=== PATIENT | female | born 1995 | race Caucasian/White ===

== ENCOUNTER 2017-10-28 14:56 | Outpatient (CLI) | payer MEDICAID ==
[~2017-10-28] VITALS: Ht 167.6 cm; Wt 57.6 kg
[2017-10-28] MEDS ORDERED: ONDA4TAB8 SL (15:09)
[2017-10-28] MEDS ORDERED: PREN-8 PO (15:09)
[2017-11-02] MEDS ORDERED: DOXY1TAB3 PO (11:07)
[2017-11-02] MEDS ORDERED: ACET-2267 PO (11:07)
== END 2017-10-28 15:15 ==
LOC: PREOP 14:56
PROVIDERS: ATTEND Obstetrics & Gynecology
DX: Z01.818 Encounter for other preprocedural examination (principal); N88.3 Incompetence of cervix uteri

== ENCOUNTER 2017-11-02 08:27 | Day surgery (SDC) | payer MEDICAID ==
[~2017-11-02] VITALS: Ht 167.6 cm; Wt 57.6 kg
[~2017-11-02 08:27] MED LIST: ONDA4TAB8 SL; PREN-8 PO
[2017-11-02 08:33] VITALS: BP 113/72
[2017-11-02] MEDS ORDERED: metroNIDAZOLE 500MG/100ML IVPB 100 ML IV ONE (08:45)
[2017-11-02] MEDS ORDERED: ceFAZolin INJECTION 1,000 MG in NS (IVPB) 50 ML IV ONE (08:45)
[2017-11-02] MEDS: LACTATED RINGERS 1,000 ML IV PRN ×2 (09:20→10:16)
[2017-11-02 09:38] LABS: HEMOGLOBIN 12.3 G/DL (11.5-16.0); MEAN PLATELET VOLUME 9.8 FL (7.4-10.4); RED BLOOD COUNT 3.61 10^6/uL (4.35-5.85); RED CELL DISTRIBUTION WIDTH 12.1 % (10.0-14.5); WHITE BLOOD COUNT 6.8 10^3/uL (4.3-11.0)
[2017-11-02] MEDS ORDERED: BUPIVACAINE SPINAL 0.75% (SENSORCAINE) 2 ML AMP ONE (10:06)
[2017-11-02] MEDS ORDERED: fentaNYL INJECTION 100 MCG/2 ML AMP ONE (10:09)
[2017-11-02] MEDS ORDERED: PROG200C6 PO (10:19)
--- NOTE | 2017-11-02 10:21 | Progress Note-Pre Operative ---
Pre-Operative Progress Note H&P Reviewed The H&P was reviewed, patient examined and no changes noted. Date Seen by Provider: Nov 02, 2017 Time Seen by Provider: 10:00 Date H&P Reviewed: Nov 02, 2017 Time H&P Reviewed: 10:15 Pre-Operative Diagnosis: incompetent cervix CHRIS VILLEGAS DO Nov 02, 2017 10:21
[2017-11-02] MEDS: BUPIVACAINE 0.25% 30 ML (SENSORCAINE) VIAL ONE ×2 (10:54→11:04)
--- NOTE | 2017-11-02 10:59 | Operative Report ---
Operative Report Date of Procedure/Surgery Nov 02, 2017 Surgeon (s) CHRIS VILLEGAS DO [place] Knitter (s): NA Post-Operative Diagnosis incompetent cervix Procedure Performed Oneal Cerclage Description of Procedure Anesthesia Type: Spinal Estimated blood loss (mL): none Specimen(s) collected/removed none Findings of the Procedure ethibond x 2 sutures 3 o;'clock Allergies and Home Medications Allergies Coded Allergies: No Known Drug Allergies (Unverified , 10/28/17) Home Medications Ondansetron 4 Mg Tab.rapdis, 4 MG SL Q8H PRN for NAUSEA/VOMITING-1ST LINE, ( Reported) Vit W-Ca,Fe,FA(<1 mg) 1 Each Tablet, 1 EACH PO DAILY, (Reported) Progesterone,Micronized 200 Mg Capsule, 200 MG PO DAILY, (Reported) CHRIS VILLEGAS DO Nov 02, 2017 10:59
[2017-11-02] MEDS ORDERED: ACETAMINOPHEN 500 MG TAB (TYLENOL) PO PRN (11:00)
[2017-11-02] MEDS ORDERED: ONDANSETRON 4 MG/2 ML (SDV) Z0FRAN IVP PRN ×2 (11:00→11:15)
[2017-11-02] MEDS ORDERED: ACET-2267 PO (11:07)
[2017-11-02] MEDS ORDERED: DOXY1TAB3 PO (11:07)
--- NOTE | 2017-11-02 11:09 | Discharge Inst-Women's Service ---
Discharge Inst-Women's Serv Depart Medication/Instructions New, Converted or Re-Newed RX: Other (has at home) Instructions Call for bleeding greater than spotting (expect spotting/light bleeding for 7= 10 days); cramping, contractions, increased watery discharge Final Diagnosis Incompetent cervix Oneal's cerclage Consults/Follow Up Additional Follow Up: Yes (1 week) Activity Activity: Bedrest (for 24-48 horus) Driving Instructions: No Driving for 24 Hours NO SMOKING: NO SMOKING Nothing Inside Vagina: No Douching, No [place], No Tampons Diet Discharge Diet: No Restrictions Symptoms to Report to : Bleeding Excessive, Pain Increased, Fever Over 101 Degrees F, Vaginal Bleeding Increase, Vaginal Discharge Foul For Any Problems or Questions: Contact Your Physician CHRIS VILLEGAS DO Nov 02, 2017 11:09
[2017-11-02 11:40] VITALS: BP 107/69
[2017-11-02 12:10] VITALS: BP 102/62
[2017-11-02] MEDS ORDERED: LIDOCAINE PF 2% 5 ML (XYLOCAINE) VIAL ONE (12:14)
[2017-11-02] MEDS ORDERED: ONDANSETRON 4 MG/2 ML (SDV) Z0FRAN ONE (12:15)
[2017-11-02 13:00] VITALS: BP 105/62
--- NOTE | 2017-11-02 15:56 | Anesthesia-Regional Post-Op ---
Regional Patient Condition Mental Status: Alert, Oriented x3 Circulation: Same as Pre-Op Headache: Absent Sensation: Full Recovery Motor Block: Absent Post Op Complications Complications None Follow Up Care/Instructions Patient Instructions None needed. Anesthesia/Patient Condition Patient is doing well, no complaints, stable vital signs, no apparent adverse anesthesia problems. JUAN FIELDS DO Nov 02, 2017 15:56
[2017-11-02 16:07] VITALS: BP 105/62
== END 2017-11-02 16:07 | disposition home or self-care (01) ==
LOC: SDC 08:27
PROVIDERS: ATTEND Obstetrics & Gynecology
DX: O34.32 Maternal care for cervical incompetence, second trimester (principal)
CPT/HCPCS: 36415; 85027; 87081; 94664

== ENCOUNTER → 2017-11-30 | Outpatient (CLI) | payer MEDICAID ==
[~2017-11-30] MED LIST changes: +ACET-2267 PO; +DOXY1TAB3 PO; +PROG200C6 PO
--- NOTE | 2017-11-30 16:10 | Diagnostic Imaging Report ---
INDICATION: survey. TECHNIQUE: Multiple real-time grayscale images were obtained over the gravid uterus. COMPARISON: None. FINDINGS: There is a single live fetus in a cephalic presentation. heart rate was recorded at 139 beats per minute. The placenta is posterior. The amniotic fluid volume is normal. Cervical length is 7.9 cm. survey demonstrates kidneys, bladder, and stomach to be unremarkable. brain is unremarkable. There is a four-chamber heart. There is a three-vessel cord with normal insertion. The spine is unremarkable. Biometrical measurements are as follows: Biparietal 3.7 cm, age 17 weeks 2 days. Head circumference 14.1 cm, age 17 weeks 4 days. Abdominal circumference 11.6 cm, age 17 weeks 3 days. Femur length 2.5 cm, age 17 weeks 4 days. Sonographic estimate age: 17 weeks 4 days. Sonographic estimated date of delivery: 05/06/18. Estimated Weight: 195 gm (+/- 29 gm). LMP percentile: 4%. heart rate: 139 beats per minute. number: 1 of 1. IMPRESSION: Single live IUP at 17 weeks 4 days gestational age. The estimated date of confinement sonographically is 05/06/2018. Dictated by: Dictated on workstation # [id number]
== END ==
LOC: RAD 14:22
PROVIDERS: ATTEND Obstetrics & Gynecology
DX: Z36.89 Encounter for other specified antenatal screening (principal); Z3A.17 17 weeks gestation of pregnancy
CPT/HCPCS: 76805

== ENCOUNTER → 2018-02-22 | Outpatient (CLI) | payer MEDICAID ==
--- NOTE | 2018-02-22 17:17 | Diagnostic Imaging Report ---
INDICATION: Followup anatomy survey not seen on prior exam. TECHNIQUE: Multiple real-time grayscale images were obtained over the gravid uterus. COMPARISON: anatomy survey of 11/30/2017. FINDINGS: The cervix remains closed measuring 4.2 cm in length. heart rate is 144 beats per minute. The fetus is in cephalic presentation. Placenta is posteriorly located and there is no evidence of previa. The YELENA is normal at 11.5 cm. Due to advanced gestational age, the maternal adnexa are not well seen. The following anatomy structures are visualized and normal: The lips, nose, and profile. Estimated gestational age by biparietal diameter, head circumference, abdominal circumference, and femoral length results in an estimated gestational age of 30 weeks and 0 days. This is concordant with patient's gestational age by LMP of 30 weeks and 4 days. Estimated weight is 3 lbs. 3 oz. (+/-7 ounces). Estimated weight is in the 15th-29th percentile. IMPRESSION: 1. Cervix is closed and measures 4.2 cm in length. 2. Limited anatomy survey of the face is normal. Dictated by: Dictated on workstation # [id number]
== END ==
LOC: RAD 09:44
PROVIDERS: ATTEND Obstetrics & Gynecology
DX: O34.33 Maternal care for cervical incompetence, third trimester (principal); O09.213 Supervision of pregnancy with history of pre-term labor, third trimester; O09.293 Supervision of pregnancy with other poor reproductive or obstetric history, third trimester; Z3A.30 30 weeks gestation of pregnancy
CPT/HCPCS: 76816

== ENCOUNTER 2018-04-21 16:00 | Outpatient (CLI) | payer MEDICAID ==
[2018-04-21 16:10] VITALS: BP 111/68
[2018-04-21] MEDS ORDERED: ONDANSETRON 4 MG/2 ML (SDV) Z0FRAN ONE (16:37)
[2018-04-21] MEDS ORDERED: NS IV 1000 ML 1,000 ML ONE (16:37)
[2018-04-21] MEDS ORDERED: NS IV 1000 ML 1,000 ML IV ONE (16:45)
[2018-04-21] MEDS: ONDANSETRON 4 MG/2 ML (SDV) Z0FRAN IVP PRN (16:51)
[2018-04-21 17:15] LABS: BASOPHILS % (AUTO) 0 % (0-10); EOSINOPHILS % (AUTO) 0 % (0-10); HEMATOCRIT 38 % (35-52); LYMPHOCYTES # (AUTO) 1.1 X 10^3 (1.0-4.0); LYMPHOCYTES % (AUTO) 7 % (12-44); MEAN CORPUSCULAR HEMOGLOBIN 34 PG (25-34); MEAN CORPUSCULAR HGB CONC 35 G/DL (32-36); MEAN CORPUSCULAR VOLUME 99 FL (80-99); MEAN PLATELET VOLUME 9.5 FL (7.4-10.4); MONOCYTES # (AUTO) 0.8 X 10^3 (0.0-1.0); MONOCYTES % (AUTO) 5 % (0-12); NEUTROPHILS # (AUTO) 14.5 X 10^3 (1.8-7.8); NEUTROPHILS % (AUTO) 88 % (42-75); PLATELET COUNT 299 10^3/uL (130-400); RED CELL DISTRIBUTION WIDTH 13.3 % (10.0-14.5); WHITE BLOOD COUNT 16.4 10^3/uL (4.3-11.0)
[2018-04-21 17:29] LABS: BAND NEUTROPHILS 2 %; BASOPHILS % (MANUAL) 0 %; EOSINOPHILS % (MANUAL) 0 %; LYMPHOCYTES % (MANUAL) 7 %; MONOCYTES % (MANUAL) 3 %; NEUTROPHILS % (MANUAL) 88 %
[2018-04-21 17:30] LABS: RBC MORPH NORMAL
[2018-04-21 17:31] LABS: ALANINE AMINOTRANSFERASE 13 U/L (0-55); ALBUMIN 3.6 GM/DL (3.2-4.5); ALKALINE PHOSPHATASE 129 U/L (40-136); BILIRUBIN,TOTAL 0.6 MG/DL (0.1-1.0); BUN/CREATININE RATIO 18; CALCIUM 8.7 MG/DL (8.5-10.1); CARBON DIOXIDE 21 MMOL/L (21-32); CHLORIDE 107 MMOL/L (98-107); CREATININE SERUM 0.67 MG/DL (0.60-1.30); GFR ESTIMATED > 60; GLUCOSE 89 MG/DL (70-105); POTASSIUM 3.7 MMOL/L (3.6-5.0); SODIUM 138 MMOL/L (135-145); TOTAL PROTEIN 6.6 GM/DL (6.4-8.2)
[2018-04-21] MEDS: PROMETHAZINE INJ 25 MG/ML (PHENERGAN) AMP IVP PRN (17:34)
[2018-04-21 18:21] LABS: BILIRUBIN,URINE NEGATIVE (NEGATIVE); CLARITY,URINE CLEAR; COLOR,URINE YELLOW; GLUCOSE, URINE (UA) NEGATIVE (NEGATIVE); KETONES,URINE 3+ (NEGATIVE); LEUKOCYTE ESTERASE ,URINE 1+ (NEGATIVE); NITRITE,URINE NEGATIVE (NEGATIVE); PH,URINE 6 (5-9); PROTEIN,URINE 2+ (NEGATIVE); UROBILINOGEN,URINE NORMAL (NORMAL)
[2018-04-21 18:31] LABS: BACTERIA,URINE FEW /HPF
[2018-04-21] MEDS: NS IV 1000 ML 1,000 ML IV SCH (19:07)
[2018-04-22] MEDS: NS IV 1000 ML 1,000 ML IV SCH ×3 (00:07→10:45)
[2018-04-22 00:10] VITALS: BP 105/57
[2018-04-22] MEDS: ONDANSETRON 4 MG/2 ML (SDV) Z0FRAN IVP PRN (00:10)
[2018-04-22 04:46] VITALS: BP 111/56
[2018-04-22] MEDS: CATHETER FLUSH 10 ML SYR IV PRN (08:14)
[2018-04-22] MEDS: PROMETHAZINE INJ 25 MG/ML (PHENERGAN) AMP IVP PRN (08:14)
--- NOTE | 2018-04-22 13:11 | Physician Progress Note ---
Progress Note Assessment/Plan Date Seen by Provider: Apr 22, 2018 Time Seen by Provider: 08:15 Events since last exam Has not had emesis since admission. Has received several doses of antiemetics. Has not yet eaten. Just received promethazine. Vitals Last set of Vitals Signs Vital Signs Date Time Temp Pulse Resp B/P (MAP) Pulse Ox O2 Delivery O2 Flow Rate FiO2 04/22/18 04:46 99.2 94 20 111/56 (74) 97 Room Air I&O I&O Intake and Output 04/22/18 00:00 Intake Total 1000 ml Balance 1000 ml Intake IV Total 1000 ml Labs Laboratory Tests 04/21/18 17:00: White Blood Count 16.4H, Red Blood Count 3.80L, Hemoglobin 13.0, Hematocrit 38, Mean Corpuscular Volume 99, Mean Corpuscular Hemoglobin 34, Mean Corpuscular Hemoglobin Concent 35, Red Cell Distribution Width 13.3, Platelet Count 299, Mean Platelet Volume 9.5, Neutrophils (%) (Auto) 88H, Lymphocytes (%) (Auto) 7L , Monocytes (%) (Auto) 5, Eosinophils (%) (Auto) 0, Basophils (%) (Auto) 0, Neutrophils # (Auto) 14.5H, Lymphocytes # (Auto) 1.1, Monocytes # (Auto) 0.8, Eosinophils # (Auto) 0.0, Basophils # (Auto) 0.0, Neutrophils % (Manual) 88, Lymphocytes % (Manual) 7, Monocytes % (Manual) 3, Eosinophils % (Manual) 0, Basophils % (Manual) 0, Band Neutrophils 2, Blood Morphology Comment NORMAL, Sodium Level 138, Potassium Level 3.7, Chloride Level 107, Carbon Dioxide Level 21, Anion Gap 10, Blood Urea Nitrogen 12, Creatinine 0.67, Estimat Glomerular Filtration Rate > 60, BUN/Creatinine Ratio 18, Glucose Level 89, Calcium Level 8.7, Corrected Calcium 9.0, Total Bilirubin 0.6, Aspartate Amino Transf (AST/ SGOT) 21, Alanine Aminotransferase (ALT/SGPT) 13, Alkaline Phosphatase 129, Total Protein 6.6, Albumin 3.6 04/21/18 18:00: Urine Color YELLOW, Urine Clarity CLEAR, Urine pH 6, Urine Specific [place] 1.025H, Urine Protein 2+H, Urine Glucose (UA) NEGATIVE, Urine Ketones 3+H, Urine Nitrite NEGATIVE, Urine Bilirubin NEGATIVE, Urine Urobilinogen NORMAL, Urine Leukocyte Esterase 1+H, Urine RBC (Auto) 2+H, Urine RBC 5-10H, Urine WBC 2 -5, Urine Squamous Epithelial Cells 2-5, Urine Crystals NONE, Urine Bacteria FEWH, Urine Casts NONE, Urine Mucus NEGATIVE, Urine Culture Indicated NO CHRIS VILLEGAS DO Apr 22, 2018 13:11
[2018-04-22] MEDS ORDERED: PROM25TA14 PO (13:12)
--- NOTE | 2018-04-22 13:16 | Discharge Inst-Women's Service ---
Discharge Inst-Women's Serv Depart Medication/Instructions New, Converted or Re-Newed RX: Transmitted to Pharmacy Instructions sips of water or gatorade bland diet Final Diagnosis acute gastritis and dehydration 38 week Consults/Follow Up Additional Follow Up: Yes (as scheduled (1 week)) Activity Activity: Activity as Tolerated Driving Instructions: You May Drive NO SMOKING: NO SMOKING Nothing Inside Vagina: No Douching, No [place], No Tampons Diet Discharge Diet: Other Diet (as above) Return to The Hospital For: labor, rupture of membranes, vaginal bleeding For Any Problems or Questions: Contact Your Physician CHRIS VILLEGAS DO Apr 22, 2018 13:16
[2018-04-22 14:30] VITALS: BP 102/59
--- NOTE | 2018-04-26 21:16 | Physician Query-Final Dx ---
KALYAN CALVILLO 04/26/18 2116: Clinic Account Progress/Dx Physician Query: Please give diagnosis Date of Service Apr 21, 2018 at 16:00 CHRIS VILLEGAS DO 04/28/18 0647: Clinic Account Progress/Dx DIAGNOSIS: Diagnosis Gastritis, acute dehydration 38 week history of delivery Cerclage, history of incompetent cervix KALYAN CALVILLO Apr 26, 2018 21:16 CHRIS VILLEGAS DO Apr 28, 2018 06:47
== END 2018-04-22 15:20 | disposition home or self-care (01) ==
LOC: WSo 16:00 → LDRP 16:00 → WSo 04-22 15:20
PROVIDERS: ATTEND Obstetrics & Gynecology
DX: O99.89 Other specified diseases and conditions complicating pregnancy, childbirth and the puerperium (principal); K29.70 Gastritis, unspecified, without bleeding; E86.0 Dehydration; Z3A.38 38 weeks gestation of pregnancy; Z87.51 Personal history of pre-term labor
CPT/HCPCS: 36415; 80053; 81000; 85007; 85027; 96361; 96374; 96375; 96376

== ENCOUNTER 2018-04-29 08:25 | Inpatient (IN) | payer MEDICAID ==
[2018-04-29] VITALS (44 sets, daily range): BP systolic 93–129; BP diastolic 53–80
[~2018-04-29] VITALS: Ht 167.6 cm; Wt 74.4 kg
[~2018-04-29 08:25] MED LIST changes: +PROM25TA14 PO
[2018-04-29] MEDS ORDERED: D5 LR IV SOLUTION 1,000 ML IV SCH (09:01)
[2018-04-29] MEDS ORDERED: D5 LR IV SOLUTION 1,000 ML IV ONE (09:06)
[2018-04-29 09:09] LABS: BASOPHILS % (AUTO) 0 % (0-10); EOSINOPHILS # (AUTO) 0.1 10^3/uL (0.0-0.3); EOSINOPHILS % (AUTO) 1 % (0-10); HEMATOCRIT 35 % (35-52); LYMPHOCYTES # (AUTO) 2.7 X 10^3 (1.0-4.0); LYMPHOCYTES % (AUTO) 25 % (12-44); MEAN CORPUSCULAR HEMOGLOBIN 34 PG (25-34); MEAN CORPUSCULAR HGB CONC 35 G/DL (32-36); MEAN CORPUSCULAR VOLUME 99 FL (80-99); MEAN PLATELET VOLUME 9.4 FL (7.4-10.4); MONOCYTES # (AUTO) 0.9 X 10^3 (0.0-1.0); MONOCYTES % (AUTO) 8 % (0-12); NEUTROPHILS # (AUTO) 7.2 X 10^3 (1.8-7.8); NEUTROPHILS % (AUTO) 67 % (42-75); PLATELET COUNT 294 10^3/uL (130-400); RED BLOOD COUNT 3.51 10^6/uL (4.35-5.85); RED CELL DISTRIBUTION WIDTH 13.4 % (10.0-14.5); WHITE BLOOD COUNT 10.9 10^3/uL (4.3-11.0)
[2018-04-29] MEDS ORDERED: MINERAL OIL CONCENTRATE 99.9% 15 ML UDC TOP PRN (09:15)
[2018-04-29] MEDS ORDERED: SUFENTA 0.6MCG/ML BUPIVA 0.125 100 ML ONE (09:50)
[2018-04-29] MEDS ORDERED: BUPIVACAINE 0.25% 30 ML (SENSORCAINE) VIAL ONE (10:10)
[2018-04-29] MEDS ORDERED: fentaNYL INJECTION 100 MCG/2 ML AMP ONE (10:10)
[2018-04-29] MEDS ORDERED: LACTATED RINGERS 1,000 ML IV SCH (12:19)
[2018-04-29] MEDS ORDERED: EPIDURAL (SUFENTA 0.6MCG/ML BUPIVA 0.125%) 100 ML BAG EPI PRN (12:30)
[2018-04-29] MEDS ORDERED: METOCLOPRAMIDE INJ 10 MG/2 ML (REGLAN) IV PRN (12:30)
[2018-04-29] MEDS ORDERED: NALOXONE 0.4 MG/ML 1 ML (NARCAN) VIAL IV PRN ×2 (12:30)
[2018-04-29] MEDS ORDERED: ONDANSETRON 4 MG/2 ML (SDV) Z0FRAN IV PRN (12:30)
[2018-04-29] MEDS ORDERED: diphenhydrAMINE 50 MG/ML INJ (BENADRYL) IV PRN (12:30)
[2018-04-29] MEDS ORDERED: CALCIUM CARBONATE 500 MG (TUMS) TAB.CHEW PO NR (13:00)
[2018-04-29] MEDS ORDERED: LIDOCAINE/EPI 2% 1:200,00 (XYLOCAINE) 10 ML VIAL ONE (13:05)
[2018-04-29] MEDS ORDERED: OXYTOCIN/NORMAL SALINE 500 ML IV ONE (13:09)
[2018-04-29] MEDS ORDERED: OXYTOCIN/NORMAL SALINE 500 ML IV SCH (13:37)
--- NOTE | 2018-04-29 13:41 | OB Labor & Delivery Record ---
Vag Delivery Note Vag Delivery Note Date of Delivery: 04/29/18 Preoperative Diagnosis: Ramila Nolasco is a 24 /Para 3/1 weeks , Gestational Age 40 weeks, history of cdelivery and incompetent cervix s/ p cerclage removal at 36 weeks Postoperative Diagnosis: Same Surgeon: CHRIS VILLEGAS Anesthesia: epidural Delivery Type: spontaneous vaginal Findings: Viable female , apgars 9/9, weight pending Lacerations: none Intact placenta with 3 vessel cord. No nuchal cord, body cord or shoulder dystocia Estimated Blood Loss: 150 ml Complications: None Condition: Stable Description of Procedure: The patient is a 24 /Para 3/1 weeks ,Gestational Age 40 weeks, history of delivery and incompetent cervix s/p cerclage removal at 36 weeks who presented for induction of labor. She was admitted and informed consent was obtained. Her labor course was remarkable for epidural placement and AROM. She progressed to complete dilatation and began to push. She was then set up for delivery. The infant's head was delivered atraumatically in the JERRELL position. The shoulders and remainder of the 's body were then delivered without difficulty. Upon delivery, the head was held below the level of the perineum and the mouth and nares were bulb suctioned. The cord was doubly clamped and cut and the infant was handed off to the pediatric staff. An intact placenta with 3-vessel cord delivered via Monie and there was found to be minimal bleeding.~ Vigorous fundal massage was performed and the fundus was found to be firm. IV oxytocin was given. Examination of the vagina and perineum revealed no laceration repaired in the usual fashion with 3-0 vicryl suture. Following the delivery sponge, instrument and needle counts were correct. Mom and baby were both in stable condition in the labor suite. Vitals - Labs Vital Signs - I&O Vital Signs Date Time Temp Pulse Resp B/P (MAP) Pulse Ox O2 Delivery O2 Flow Rate FiO2 04/29/18 11:13 75 18 112/71 (85) 100 04/29/18 11:10 84 18 119/75 (90) 100 04/29/18 11:08 81 18 118/73 (88) 98 04/29/18 11:05 82 18 117/74 (88) 98 04/29/18 10:55 82 18 119/74 (89) 99 04/29/18 10:52 90 18 129/77 (94) 99 04/29/18 10:49 79 18 119/70 (86) 99 04/29/18 10:46 94 18 127/79 (95) 98 04/29/18 10:43 88 18 113/72 (86) 98 04/29/18 10:40 82 18 113/69 (84) 98 04/29/18 10:35 94 18 116/76 (89) 98 04/29/18 10:15 85 18 114/72 (86) 04/29/18 10:05 71 18 109/63 (78) 04/29/18 09:50 77 18 108/63 (78) 04/29/18 09:35 78 18 111/62 (78) 04/29/18 08:35 97.6 79 18 111/66 (81) Labs Laboratory Tests 04/29/18 08:50: White Blood Count 10.9, Red Blood Count 3.51L, Hemoglobin 12.0, Hematocrit 35, Mean Corpuscular Volume 99, Mean Corpuscular Hemoglobin 34, Mean Corpuscular Hemoglobin Concent 35, Red Cell Distribution Width 13.4, Platelet Count 294, Mean Platelet Volume 9.4, Neutrophils (%) (Auto) 67, Lymphocytes (%) (Auto) 25, Monocytes (%) (Auto) 8, Eosinophils (%) (Auto) 1, Basophils (%) (Auto) 0, Neutrophils # (Auto) 7.2, Lymphocytes # (Auto) 2.7, Monocytes # (Auto) 0.9, Eosinophils # (Auto) 0.1, Basophils # (Auto) 0.0 CHRIS VILLEGAS DO Apr 29, 2018 13:41
[2018-04-29] MEDS ORDERED: MEASLES,MUMPS,RUBELLA 1 EA INJ SQ ONE (13:45)
[2018-04-29] MEDS ORDERED: DIBUCAINE (NUPERCAINAL) 1% OINT 30 GM TOP PRN (13:45)
[2018-04-29] MEDS ORDERED: WITCH HAZEL(TUCKS) 40 EA JAR TOP PRN (13:45)
[2018-04-29] MEDS ORDERED: BENZOCAINE/MENTHOL (DERMOPLAST) 56 ML CAN TP PRN (13:45)
[2018-04-29] MEDS ORDERED: TETANUS,DIPTH,PERTUSS P/F (BOOSTRIX) 0.5 ML VIAL IM ONE (13:45)
[2018-04-29] MEDS ORDERED: ACETAMINOPHEN 500 MG TAB (TYLENOL) PO PRN (13:45)
[2018-04-29] MEDS ORDERED: CATHETER FLUSH 10 ML SYR IV SCH ×2 (14:00)
[2018-04-29] MEDS: IBUPROFEN 600 MG (MOTRIN) TAB PO SCH ×2 (14:53→20:31)
[2018-04-29] MEDS: DOCUSATE SODIUM 100 MG (COLACE) CAP PO SCH (20:31)
[2018-04-30] VITALS: BP 126/86
[2018-04-30] MEDS: IBUPROFEN 600 MG (MOTRIN) TAB PO SCH ×3 (02:34→15:40)
[2018-04-30 04:00] VITALS: BP 108/74
[2018-04-30 06:07] LABS: BASOPHILS % (AUTO) 0 % (0-10); EOSINOPHILS # (AUTO) 0.1 10^3/uL (0.0-0.3); EOSINOPHILS % (AUTO) 1 % (0-10); HEMATOCRIT 33 % (35-52); HEMOGLOBIN 11.3 G/DL (11.5-16.0); LYMPHOCYTES # (AUTO) 2.5 X 10^3 (1.0-4.0); LYMPHOCYTES % (AUTO) 21 % (12-44); MEAN CORPUSCULAR HEMOGLOBIN 35 PG (25-34); MEAN CORPUSCULAR HGB CONC 35 G/DL (32-36); MEAN CORPUSCULAR VOLUME 100 FL (80-99); MEAN PLATELET VOLUME 9.3 FL (7.4-10.4); MONOCYTES # (AUTO) 1.1 X 10^3 (0.0-1.0); MONOCYTES % (AUTO) 10 % (0-12); NEUTROPHILS # (AUTO) 7.9 X 10^3 (1.8-7.8); NEUTROPHILS % (AUTO) 68 % (42-75); PLATELET COUNT 266 10^3/uL (130-400); RED BLOOD COUNT 3.25 10^6/uL (4.35-5.85); RED CELL DISTRIBUTION WIDTH 13.1 % (10.0-14.5); WHITE BLOOD COUNT 11.6 10^3/uL (4.3-11.0)
[2018-04-30] MEDS ORDERED: PRENATAL VITAMIN 1 EA TAB PO SCH (07:00)
[2018-04-30] MEDS ORDERED: FERROUS SULF 325 MG (IRON) TAB PO SCH (08:00)
[2018-04-30 08:34] VITALS: BP 123/82
[2018-04-30] MEDS: DOCUSATE SODIUM 100 MG (COLACE) CAP PO SCH (08:36)
[2018-04-30] MEDS ORDERED: IBUP-844 PO (10:31)
[2018-04-30] MEDS ORDERED: ACET-2267 PO (10:31)
--- NOTE | 2018-04-30 10:36 | Discharge Inst-Women's Service ---
Discharge Inst-Women's Serv Depart Medication/Instructions New, Converted or Re-Newed RX: Transmitted to Pharmacy Final Diagnosis 40 week history of delivery cerclage history of incompetent cervix. epidural vaginal delivery Consults/Follow Up Additional Follow Up: Yes (6week post exam) Activity Activity: Activity as Tolerated Driving Instructions: You May Drive NO SMOKING: NO SMOKING Nothing Inside Vagina: No Douching, No [place], No Tampons Diet Discharge Diet: No Restrictions Symptoms to Report to : Swelling Increased, Bleeding Excessive, Fever Over 101 Degrees F, Vaginal Bleeding Increase, Cramps in Feet or Legs, Vaginal Discharge Foul For Any Problems or Questions: Contact Your Physician CHRIS VILLEGAS DO Apr 30, 2018 10:36
[2018-04-30] MEDS ORDERED: ONDANSETRON 4 MG (ZOFRAN) ORAL DISSOLVE TAB PO PRN (10:45)
--- NOTE | 2018-04-30 10:53 | Postpartum Progress Note ---
Note Note Day # 1 s/p Subjective: Patient is without complaints. Ambulating, voiding. Tolerating a regular diet without nausea or vomiting. Normal lochia. Pain is well controlled with oral pain medications. breast feeding. [] Objective: Laboratory Tests Test 04/30/18 06:00 Range/Units White Blood Count 11.6 H 4.3-11.0 10^3/uL Red Blood Count 3.25 L 4.35-5.85 10^6/uL Hemoglobin 11.3 L 11.5-16.0 G/DL Hematocrit 33 L 35-52 % Mean Corpuscular Volume 100 H 80-99 FL Mean Corpuscular Hemoglobin 35 H 25-34 PG Mean Corpuscular Hemoglobin Concent 35 32-36 G/DL Red Cell Distribution Width 13.1 10.0-14.5 % Platelet Count 266 130-400 10^3/uL Mean Platelet Volume 9.3 7.4-10.4 FL Neutrophils (%) (Auto) 68 42-75 % Lymphocytes (%) (Auto) 21 12-44 % Monocytes (%) (Auto) 10 0-12 % Eosinophils (%) (Auto) 1 0-10 % Basophils (%) (Auto) 0 0-10 % Neutrophils # (Auto) 7.9 H 1.8-7.8 X 10^3 Lymphocytes # (Auto) 2.5 1.0-4.0 X 10^3 Monocytes # (Auto) 1.1 H 0.0-1.0 X 10^3 Eosinophils # (Auto) 0.1 0.0-0.3 10^3/uL Basophils # (Auto) 0.0 0.0-0.1 10^3/uL Vital Sign - Last 24 Hours 04/29/18 04/29/18 04/29/18 04/29/18 10:43 10:46 10:49 10:52 Pulse 88 94 79 90 Resp B/P (MAP) 113/72 (86) 127/79 (95) 119/70 (86) 129/77 (94) Pulse Ox 98 98 99 99 04/29/18 04/29/18 04/29/18 04/29/18 10:55 11:05 11:08 11:10 Pulse 82 82 81 84 Resp 18 B/P (MAP) 119/74 (89) 117/74 (88) 118/73 (88) 119/75 (90) Pulse Ox 99 98 98 100 04/29/18 04/29/18 04/29/18 04/29/18 11:13 11:16 11:20 11:25 Temp 97.6 Pulse 75 71 76 76 Resp 18 18 18 18 B/P (MAP) 112/71 (85) 108/72 (84) 117/73 (88) 117/73 (88) Pulse Ox 100 99 100 100 O2 Delivery Non Rebreather Non Rebreather Non Rebreather O2 Flow Rate 15.00 15.00 15.00 04/29/18 04/29/18 04/29/18 04/29/18 11:30 11:35 11:40 11:45 Pulse 62 59 74 76 Resp 18 18 18 18 B/P (MAP) 104/59 (74) 105/61 (76) 108/71 (83) 108/55 (72) Pulse Ox 100 100 100 100 O2 Delivery Non Rebreather Room Air Non Rebreather Non Rebreather O2 Flow Rate 15.00 15.00 15.00 04/29/18 04/29/18 04/29/18 04/29/18 11:50 11:55 12:00 12:05 Pulse 75 70 72 64 Resp 18 18 18 18 B/P (MAP) 100/62 (75) 97/53 (68) 111/75 (87) 115/78 (90) Pulse Ox 100 100 100 100 O2 Delivery Non Rebreather Non Rebreather Non Rebreather Non Rebreather O2 Flow Rate 15.00 15.00 15.00 15.00 04/29/18 04/29/18 04/29/18 04/29/18 12:10 12:20 12:30 12:45 Pulse 66 63 75 61 Resp 18 18 18 18 B/P (MAP) 120/71 (87) 106/58 (74) 101/62 (75) 93/54 (67) Pulse Ox 100 O2 Delivery Non Rebreather Non Rebreather Non Rebreather Non Rebreather O2 Flow Rate 15.00 15.00 15.00 15.00 04/29/18 04/29/18 04/29/18 04/29/18 13:00 13:15 13:30 13:45 Temp 97.4 Pulse 83 87 85 72 Resp 18 18 18 18 B/P (MAP) 111/62 (78) 119/79 (92) 113/68 (83) 110/65 (80) O2 Delivery Non Rebreather Room Air Room Air Room Air O2 Flow Rate 15.00 04/29/18 04/29/18 04/29/18 04/29/18 14:00 14:15 14:30 14:45 Pulse 71 74 77 69 Resp 18 18 B/P (MAP) 126/70 (88) 117/80 (92) 105/80 (88) 109/68 (82) O2 Delivery Room Air Room Air Room Air Room Air 04/29/18 04/29/18 04/29/18 04/29/18 15:00 15:15 15:30 15:45 Temp 97.8 Pulse 69 67 61 72 Resp 18 18 18 18 B/P (MAP) 110/68 (82) 110/68 (82) 98/71 (80) 102/64 (77) O2 Delivery Room Air Room Air Room Air Room Air 04/29/18 04/30/18 04/30/18 04/30/18 20:00 00:00 04:00 08:34 Temp 98.6 98.0 97.8 97.3 Pulse 77 79 84 82 Resp 18 18 18 16 B/P (MAP) 108/69 (82) 126/86 (99) 108/74 (85) 123/82 (96) Pulse Ox 99 99 97 97 O2 Delivery Room Air Room Air Room Air Room Air Intake and Output 04/29/18 04/29/18 04/30/18 15:00 23:00 07:00 Intake Total 2100 ml 844 ml Output Total 300 ml Balance 2100 ml 544 ml Physical Exam: General - Alert and oriented, no apparent distress Abdomen - Soft, appropriately tender to palpation, non-distended, fundus firm at umbilicus Extremities - no edema, negative Corby's bilaterally [] Assessment: [] post- day # [], status post [] vaginal delivery. Recovering well, hemodynamically stable [] Plan: Routine care. Encourage breast feeding. Encourage ambulation. Ferrous sulfate supplementation. Plan for discharge [] Vitals - Labs Vital Signs - I&O Vital Signs Date Time Temp Pulse Resp B/P (MAP) Pulse Ox O2 Delivery O2 Flow Rate FiO2 04/30/18 08:34 97.3 82 16 123/82 (96) 97 Room Air 04/30/18 04:00 97.8 84 18 108/74 (85) 97 Room Air 04/30/18 00:00 98.0 79 18 126/86 (99) 99 Room Air 04/29/18 20:00 98.6 77 18 108/69 (82) 99 Room Air 04/29/18 15:45 97.8 72 18 102/64 (77) Room Air 04/29/18 15:30 61 18 98/71 (80) Room Air 04/29/18 15:15 67 18 110/68 (82) Room Air 04/29/18 15:00 69 18 110/68 (82) Room Air 04/29/18 14:45 69 18 109/68 (82) Room Air 04/29/18 14:30 77 18 105/80 (88) Room Air 04/29/18 14:15 74 18 117/80 (92) Room Air 04/29/18 14:00 71 18 126/70 (88) Room Air 04/29/18 13:45 72 18 110/65 (80) Room Air 04/29/18 13:30 85 18 113/68 (83) Room Air 04/29/18 13:15 97.4 87 18 119/79 (92) Room Air 04/29/18 13:00 83 18 111/62 (78) Non Rebreather 15.00 04/29/18 12:45 61 18 93/54 (67) Non Rebreather 15.00 04/29/18 12:30 75 18 101/62 (75) Non Rebreather 15.00 04/29/18 12:20 63 18 106/58 (74) Non Rebreather 15.00 04/29/18 12:10 66 18 120/71 (87) 100 Non Rebreather 15.00 04/29/18 12:05 64 18 115/78 (90) 100 Non Rebreather 15.00 04/29/18 12:00 72 18 111/75 (87) 100 Non Rebreather 15.00 04/29/18 11:55 70 18 97/53 (68) 100 Non Rebreather 15.00 04/29/18 11:50 75 18 100/62 (75) 100 Non Rebreather 15.00 04/29/18 11:45 76 18 108/55 (72) 100 Non Rebreather 15.00 04/29/18 11:40 74 18 108/71 (83) 100 Non Rebreather 15.00 04/29/18 11:35 59 18 105/61 (76) 100 Room Air 04/29/18 11:30 62 18 104/59 (74) 100 Non Rebreather 15.00 04/29/18 11:25 97.6 76 18 117/73 (88) 100 Non Rebreather 15.00 04/29/18 11:20 76 18 117/73 (88) 100 Non Rebreather 15.00 04/29/18 11:16 71 18 108/72 (84) 99 Non Rebreather 15.00 04/29/18 11:13 75 18 112/71 (85) 100 04/29/18 11:10 84 18 119/75 (90) 100 04/29/18 11:08 81 18 118/73 (88) 98 04/29/18 11:05 82 18 117/74 (88) 98 04/29/18 10:55 82 18 119/74 (89) 99 04/29/18 10:52 90 18 129/77 (94) 99 04/29/18 10:49 79 18 119/70 (86) 99 04/29/18 10:46 94 18 127/79 (95) 98 04/29/18 10:43 88 18 113/72 (86) 98 I & O 04/30/18 07:00 Intake Total 2944 ml Output Total 300 ml Balance 2644 ml Labs Laboratory Tests 04/30/18 06:00: White Blood Count 11.6H, Red Blood Count 3.25L, Hemoglobin 11.3L, Hematocrit 33L , Mean Corpuscular Volume 100H, Mean Corpuscular Hemoglobin 35H, Mean Corpuscular Hemoglobin Concent 35, Red Cell Distribution Width 13.1, Platelet Count 266, Mean Platelet Volume 9.3, Neutrophils (%) (Auto) 68, Lymphocytes (%) (Auto) 21, Monocytes (%) (Auto) 10, Eosinophils (%) (Auto) 1, Basophils (%) ( Auto) 0, Neutrophils # (Auto) 7.9H, Lymphocytes # (Auto) 2.5, Monocytes # (Auto ) 1.1H, Eosinophils # (Auto) 0.1, Basophils # (Auto) 0.0 CHRIS VILLEGAS DO Apr 30, 2018 10:53
--- NOTE | 2018-04-30 12:05 | Anesthesia-Regional Post-Op ---
Regional Patient Condition Mental Status: Alert, Oriented x3 Circulation: Same as Pre-Op Headache: Absent Sensation: Full Recovery Motor Block: Absent Post Op Complications Complications None Follow Up Care/Instructions Patient Instructions None needed. Anesthesia/Patient Condition Patient is doing well, no complaints, stable vital signs, no apparent adverse anesthesia problems. No complications reported per nursing. AD FOSS CRNA Apr 30, 2018 12:05
[2018-04-30 17:00] VITALS: BP 118/76
[2018-04-30] MEDS ORDERED: MEASLES,MUMPS,RUBELLA 1 EA INJ ONE (17:03)
== END 2018-04-30 18:50 | disposition home or self-care (01) | DRG 807 ==
LOC: LDRP 08:25
PROVIDERS: ADMIT Obstetrics & Gynecology; ATTEND Obstetrics & Gynecology
PROC: 10E0XZZ Delivery of Products of Conception, External Approach (ICD-10-PCS; principal; 2018-04-29)
PROC: 10907ZC Drainage of Amniotic Fluid, Therapeutic from Products of Conception, Via Natural or Artificial Opening (ICD-10-PCS; 2018-04-29)
DX: O34.33 Maternal care for cervical incompetence, third trimester (principal); O99.62 Diseases of the digestive system complicating childbirth; K21.9 Gastro-esophageal reflux disease without esophagitis; Z87.51 Personal history of pre-term labor; Z3A.40 40 weeks gestation of pregnancy; Z37.0 Single live birth
CPT/HCPCS: 36415; 85025; 86850; 86900; 86901; 90471; 90707

== ENCOUNTER 2021-08-18 19:37 | Emergency (ER) | payer MEDICAID ==
[~2021-08-18] VITALS: Ht 167.7 cm; Wt 55.1 kg
[~2021-08-18 19:37] MED LIST changes: +IBUP-844 PO; +PROG200C10 PO; -PROG200C6 PO
--- NOTE | 2021-08-18 19:49 | ED General ---
General Stated Complaint: L BIG TOENAIL PAIN Source of Information: Patient Exam Limitations: No Limitations History of Present Illness Date Seen by Provider: Aug 18, 2021 Time Seen by Provider: 19:40 Initial Comments 25-year-old female with no significant past medical history coming in due to her left big toenail falling off. She dropped a shelf on it about a month ago, it hurt a lot, the toenail turned black, she noticed today that it does not seem like it is attached. She wanted to get it checked out. She is no longer having any pain at all or any symptoms. She is otherwise denying any other acute com plaints. Allergies and Home Medications Allergies Coded Allergies: No Known Drug Allergies (Unverified , 10/28/17) Patient Home Medication List Home Medication List Reviewed: Yes Acetaminophen (Tylenol Extra Strength) 500 Mg Tablet, 1,000 MG PO Q6H Prescribed by: CHRIS VILLEGAS on 04/30/18 1031 Doxylamine/Pyridoxine HCl (Diclegis Dr 10-10 mg Tablet) 1 Each Tablet.dr, 2 EACH PO HS Prescribed by: CHRIS VILLEGAS on 11/02/17 1107 Ibuprofen (Ibu) 600 Mg Tablet, 600 MG PO Q6H Prescribed by: CHRIS VILLEGAS on 04/30/18 1031 Vit W-Ca,Fe,FA(<1 mg) ( Formula) 1 Each Tablet, 1 EACH PO DAILY, (Reported) Entered as Reported by: LIANNA LOPEZ on 10/28/17 1509 Promethazine HCl (Promethazine Tablet) 25 Mg Tablet, 25 MG PO Q6H PRN for NAUSEA/VOMITING Prescribed by: CHRIS VILLEGAS on 04/22/18 1312 Review of Systems Review of Systems Constitutional: No chills EENTM: no symptoms reported Respiratory: no symptoms reported Cardiovascular: no symptoms reported Gastrointestinal: no symptoms reported Genitourinary: no symptoms reported Musculoskeletal: no symptoms reported Skin: no symptoms reported Psychiatric/Neurological: No Symptoms Reported Hematologic/Lymphatic: No Symptoms Reported Immunological/Allergic: no symptoms reported All Other Systems Reviewed Negative Unless Noted: Yes Past Expsjlp-Wquxce-Sipdqj Hx Patient Social History Tobacco Use?: No Immunizations Up To Date PED Vaccines UTD: No Seasonal Allergies Seasonal Allergies: Yes Past Medical History Surgeries: Yes (cerclage) Respiratory: No Cardiac: No Neurological: No Sexually Transmitted Disease: No HIV/AIDS: No Genitourinary: No Gastrointestinal: No (n/v) Musculoskeletal: No Endocrine: No HEENT: No Cancer: No Psychosocial: No Integumentary: No Blood Disorders: No Adverse Reaction/Blood Tranf: No (n/a) Family Medical History Hypertension 19 MOTHER Physical Exam Vital Signs Capillary Refill : Height, Weight, BMI Height: 5'6.00" Weight: 164lbs. 0.2oz. 74.746138ty; 26.5 BMI Method: General Appearance: No Apparent Distress, WD/WN Eyes: Bilateral Eye Normal Inspection HEENT: Normal ENT Inspection Neck: Full Range of Motion Respiratory: Chest Non Tender, Lungs Clear, Normal Breath Sounds Cardiovascular: Regular Rate, Rhythm, No Edema, Normal Peripheral Pulses Gastrointestinal: Normal Bowel Sounds, Non Tender, Soft Back: Normal Inspection Extremity: Normal Capillary Refill, Normal Inspection, Normal Range of Motion, Non Tender, No Calf Tenderness, No Pedal Edema, Other (left big toe nail is black, essentially completely removed from nail bed other than a small skin bridge keeping it on, there is healthy new nail underneath, no bony tenderness) Neurologic/Psychiatric: Alert Skin: Normal Color, Warm/Dry Lymphatic: No Adenopathy Progress/Results/Core Measures Suspected Sepsis SIRS Temperature: Pulse: Respiratory Rate: Blood Pressure / Mean: Results/Orders Vital Signs/I&O Capillary Refill : Progress Note : Progress Note Came in for her toenail falling off after trauma over a month ago. New nail growing back and no signs of fracture. Departure Impression Primary Impression: Nail avulsion, toe Qualified Codes: S91.209A - Unspecified open wound of unspecified toe(s) with damage to nail, initial encounter Disposition: 01 HOME, SELF-CARE Condition: Stable Departure-Patient Inst. Decision time for Depature: 19:48 Referrals: NO,LOCAL PHYSICIAN (PCP/Family) Primary Care Physician Patient Instructions: Toe Injury (DC) Add. Discharge Instructions: You can try to pull the rest of the toenail off with a small tug every day. It may bleed a small amount when it fully comes off which is ok. You have a new nail growing underneath it which will come back sometimes in a different shape. MECHELLE KEENAN MD Aug 18, 2021 19:49
[2021-08-18 19:50] VITALS: BP 107/70
== END 2021-08-18 19:50 | disposition home or self-care (01) ==
LOC: EDUNIT# 19:37 → ER FS 19:39
DX: S91.202A Unspecified open wound of left great toe with damage to nail, initial encounter (principal); W20.8XXA Other cause of strike by thrown, projected or falling object, initial encounter
CPT/HCPCS: 99281

== ENCOUNTER 2022-09-15 05:36 | Outpatient (CLI) | payer MEDICAID ==
[~2022-09-15] VITALS: Ht 167.7 cm; Wt 57.2 kg
[2022-09-16] MEDS ORDERED: ONDA4TAB11 SL (13:52)
== END 2022-09-16 14:30 | disposition home or self-care (01) ==
LOC: PREOP 05:36
PROVIDERS: ATTEND Obstetrics & Gynecology
DX: Z01.818 Encounter for other preprocedural examination (principal)

== ENCOUNTER 2022-09-22 08:06 | Day surgery (SDC) | payer MEDICAID ==
[~2022-09-22] VITALS: Ht 167.7 cm; Wt 57.2 kg
[2022-09-22] VITALS (10 sets, daily range): BP systolic 101–120; BP diastolic 63–87
[~2022-09-22 08:06] MED LIST changes: +ONDA4TAB11 SL
[2022-09-22] MEDS ORDERED: fentaNYL INJ 100 MCG/2 ML AMP ONE (08:31)
[2022-09-22] MEDS: LACTATED RINGERS 1,000 ML IV PRN ×2 (08:38→09:16)
[2022-09-22 08:49] LABS: BASOPHILS % (AUTO) 0 % (0-10); EOSINOPHILS # (AUTO) 0.2 10^3/uL (0.0-0.3); EOSINOPHILS % (AUTO) 2 % (0-10); HEMATOCRIT 31 % (35-52); HEMOGLOBIN 11.3 g/dL (11.5-16.0); LYMPHOCYTES # (AUTO) 1.3 10^3/uL (1.0-4.0); LYMPHOCYTES % (AUTO) 15 % (12-44); MEAN CORPUSCULAR HEMOGLOBIN 35 pg (25-34); MEAN CORPUSCULAR HGB CONC 36 g/dL (32-36); MEAN CORPUSCULAR VOLUME 96 fL (80-99); MEAN PLATELET VOLUME 9.7 fL (9.0-12.2); MONOCYTES # (AUTO) 0.5 10^3/uL (0.0-1.0); MONOCYTES % (AUTO) 6 % (0-12); NEUTROPHILS # (AUTO) 6.6 10^3/uL (1.8-7.8); NEUTROPHILS % (AUTO) 77 % (42-75); PLATELET COUNT 201 10^3/uL (130-400); WHITE BLOOD COUNT 8.6 10^3/uL (4.3-11.0)
--- NOTE | 2022-09-22 10:08 | Anesthesia-Regional Post-Op ---
Regional Patient Condition Mental Status: Alert, Oriented x3 Circulation: Same as Pre-Op Headache: Absent Sensation: Full Recovery Motor Block: Absent Post Op Complications Complications None Follow Up Care/Instructions Patient Instructions None needed. Anesthesia/Patient Condition Patient is doing well, no complaints, stable vital signs, no apparent adverse anesthesia problems. No complications reported per nursing. RUBI SIMS CRNA September 22, 2022 10:08
--- NOTE | 2022-09-22 10:14 | Discharge Inst-Women's Service ---
Discharge Inst-Women's Serv Depart Medication/Instructions New, Converted or Re-Newed RX: Transmitted to Pharmacy Problems Reviewed?: Yes Consults/Follow Up Additional Follow Up: Yes Orders/Referrals Dr. Stafford in 7-10 days Activity Activity: Activity as Tolerated Driving Instructions: You May Drive (no driving today) Nothing Inside Vagina: No Douching, No [place], No Tampons Diet Discharge Diet: No Restrictions Symptoms to Report to : Bleeding Excessive, Pain Increased, Fever Over 101 Degrees F, Vaginal Bleeding Increase, Questions/Concerns For Any Problems or Questions: Contact Your Physician KWAKU STAFFORD DO September 22, 2022 10:14
[2022-09-22] MEDS ORDERED: ONDANSETRON 4 MG/2 ML (SDV) Z0FRAN IVP PRN ×2 (10:15)
[2022-09-22] MEDS ORDERED: INDOMETHACIN 25 MG (INDOCIN) CAP PO ONE (10:15)
[2022-09-22] MEDS ORDERED: D5 LR IV SOLUTION 1,000 ML IV SCH (10:15)
[2022-09-22] MEDS ORDERED: INDO25CA99 PO (10:15)
--- NOTE | 2022-09-22 10:16 | Progress Note-Pre Operative ---
Pre-Operative Progress Note Date of Available H&P: September 22, 2022 Date H&P Reviewed: September 22, 2022 Time H&P Reviewed: 09:45 History & Physical: H&P Reviewed, Patient Examed, No changes noted Pre-Operative Diagnosis: Cervical insufficency KWAKU STAFFORD DO September 22, 2022 10:16
--- NOTE | 2022-09-22 19:58 | OPERATIVE REPORT ---
DATE OF SERVICE: 09/22/2022 PREOPERATIVE DIAGNOSIS: A 26-year-old female with history of cervical insufficiency. POSTOPERATIVE DIAGNOSIS: A 26-year-old female with history of cervical insufficiency. PROCEDURE: Oneal cerclage. SURGEON: Kwaku Stafford DO. ANESTHESIA: Spinal. ESTIMATED BLOOD LOSS: Minimal. URINE OUTPUT: 300 mL drained at the start of the procedure. FLUIDS: 800 mL lactated Ringer's solution. FINDINGS: Grossly normal-appearing external female genitalia. Cervix without evidence of prior cerclage and scarring. SPECIMEN SENT: None. INDICATIONS FOR PROCEDURE: This 26-year-old female is the patient, who had history of cervical insufficiency. She was prophylactically scheduled at 15 weeks for Oneal cerclage. Risks of the procedure had been discussed with the patient in detail. She was well aware of the risks and she had had 2 prior cerclages in the past. She was agreeable to proceed. In the preoperative area, consent was obtained. The patient was taken to the operating room. OPERATIVE REPORT IN DETAIL: Once in the operating room, spinal analgesia was found to be adequate. She was placed in dorsal lithotomy position, prepped and draped in normal sterile fashion. A weighted speculum was inserted into the patient's vagina. Right angle retractor was utilized to visualize the cervix. It was grasped at 12 o'clock position and at the 6 o'clock position using an Allis clamp. I then placed 2 separate pursestring Oneal cerclages. These were done with #1 Ethibond, taking 4 bites of the cervix with each and a stitch of both being at the 12 o'clock position. There is a loop left on the stitch as well for identification and removal at the end of the , after which there was no active bleeding noted from the cervix. The cervix was then copiously irrigated using normal saline. Again, no bleeding was noted. I then removed all the instruments from the patient's vagina. The patient tolerated the procedure well and was taken to recovery in stable condition. heart rate is appreciated preoperatively at 140 and postoperatively at 140. Job ID: [id number] DocumentID: [id number] Dictated Date: 09/22/2022 10:46:09 [employer] Date: 09/22/2022 19:56:00 Dictated By: KWAKU STAFFORD DO
== END 2022-09-22 13:05 | disposition home or self-care (01) ==
LOC: SDC 08:06
PROVIDERS: ATTEND Obstetrics & Gynecology
DX: O34.31 Maternal care for cervical incompetence, first trimester (principal); Z87.891 Personal history of nicotine dependence; N91.2 Amenorrhea, unspecified; Z28.310 Unvaccinated for COVID-19; Z3A.15 15 weeks gestation of pregnancy
CPT/HCPCS: 36415; 85025; 86850; 86900; 86901; 87081

== ENCOUNTER → 2022-11-20 | Outpatient (CLI) | payer MEDICAID ==
[~2022-11-20] MED LIST changes: +INDO25CA99 PO
--- NOTE | 2022-11-20 15:03 | Diagnostic Imaging Report ---
INDICATION: Routine care. TECHNIQUE: Multiple real-time grayscale images were obtained over the gravid uterus. COMPARISON: None. FINDINGS: There is a luciano viable IUP found in variable position throughout the study. Amniotic fluid index is 21.3 with largest vertical pocket of 5.9 cm. The posterior placenta appeared normal. No abruption or previa. The nondilated cervix of 4.3 cm had its closed os of 5.2 cm from the caudal tip of the intact placenta. The anatomical survey was normal and the measurements are congruent, overall correlating with an average age of 25 weeks 3 days. Sonographic date of confinement of 03/02/2023. IMPRESSION: 25 weeks 3 days luciano viable IUP in variable position. No pathological finding identified. Biometrical measurements are as follows: Biparietal 6.38 cm, age 25 weeks 6 days. Head circumference 23.62 cm, age 25 weeks 5 days. Abdominal circumference 20.04 cm, age 24 weeks 5 days. Femur length 4.58 cm, age 25 weeks 2 days. Sonographic estimate age: 25 weeks 3 days. Sonographic estimated date of delivery: 03/02/2023. Estimated Weight: 761 gm (+/- 111 gm). LMP percentile: 34%. heart rate: 129 beats per minute. number: 1 of 1. Dictated by: Dictated on workstation # [id number]
== END ==
LOC: RAD 11:13
PROVIDERS: ATTEND Nurse Practitioner Women's Health
DX: Z34.92 Encounter for supervision of normal pregnancy, unspecified, second trimester (principal); Z3A.25 25 weeks gestation of pregnancy
CPT/HCPCS: 76805

== ENCOUNTER 2023-02-06 14:41 | Outpatient (RCR) | payer MEDICAID ==
[~2023-02-06 14:41] MED LIST changes: +BETAMETHASONE Acetate/Na Phosphate 6 MG/ML INJ IM ONE; +BETAMETHASONE Acetate/Na Phosphate 6 MG/ML INJ IM SCH
[2023-02-06] MEDS ORDERED: BETAMETHASONE Acetate/Na Phosphate 6 MG/ML INJ IM SCH (15:15)
== END 2023-02-13 | disposition home or self-care (01) ==
LOC: WSo 14:41
PROVIDERS: ATTEND Obstetrics & Gynecology
DX: O34.30 Maternal care for cervical incompetence, unspecified trimester (principal)
CPT/HCPCS: 96372

== ENCOUNTER 2023-02-22 18:17 | Outpatient (CLI) | payer MEDICAID ==
[~2023-02-22] VITALS: Ht 167.7 cm; Wt 74.1 kg
[~2023-02-22 18:17] MED LIST changes: -BETAMETHASONE Acetate/Na Phosphate 6 MG/ML INJ IM ONE; -BETAMETHASONE Acetate/Na Phosphate 6 MG/ML INJ IM SCH
[2023-02-22 18:40] VITALS: BP 126/76
[2023-02-22 19:46] VITALS: BP 106/69
[2023-02-22 19:46] LABS: BACTERIA,URINE LARGE /HPF; BILIRUBIN,URINE NEGATIVE (NEGATIVE); CLARITY,URINE CLEAR; COLOR,URINE YELLOW; GLUCOSE, URINE (UA) NEGATIVE (NEGATIVE); KETONES,URINE NEGATIVE (NEGATIVE); LEUKOCYTE ESTERASE ,URINE TRACE (NEGATIVE); NITRITE,URINE POSITIVE (NEGATIVE); PROTEIN,URINE TRACE (NEGATIVE); WBC,URINE 50-100 /HPF
[2023-02-22 19:47] VITALS: BP 106/69
[2023-02-22 20:54] VITALS: BP 117/68
[2023-02-22] MEDS ORDERED: CEPH500T PO (21:04)
--- NOTE | 2023-02-22 21:05 | Discharge Inst-Simple/Standard ---
Discharge Inst-Standard Reconcile Patient Problems Problems Reviewed?: Yes Discharge Medications New, Converted or Re-Newed RX: Transmitted to Pharmacy Patient Instructions/Follow Up Plan of Care/Instructions/FU: keep next appt. labor precautions Activity as Tolerated: Yes Discharge Diet: Regular Diet NANCY ZARAGOZA DO Feb 22, 2023 21:05
[2023-02-22 21:07] VITALS: BP 115/70
--- NOTE | 2023-02-22 21:09 | OB Triage Report ---
Standard Progress Note Progress Notes/Assess & Plan Date Seen by a Provider: Feb 22, 2023 Time Seen by a Provider: 18:45 Expected Date of Delivery: Mar 04, 2023 Gestational Age in Weeks: 38 Gestational Age in Days: 4 LMP/NINI Comment: This 27yo presents to L&D with c/o CTX Q5min that started this am. Pt had a cerclage removed about 1 wk ago for HO incompetent cvx. Pt states that she came from [facility] (about 2.5hrs away) FHR 125 Reactive CVX 3/75/-1 no change after 2hrs TOCOs Q 30min labs reviewed Progress/Assessment & Plan IUP @ 38w4d False labor UTI UCX pending RX sent for ATBx Labor precautions Keep next appt. NANCY ZARAGOZA DO Feb 22, 2023 21:09
== END 2023-02-22 21:23 | disposition home or self-care (01) ==
LOC: WSo 18:17 → LDRP 18:18 → WSo 21:23
PROVIDERS: ATTEND Obstetrics & Gynecology
DX: O47.1 False labor at or after 37 completed weeks of gestation (principal); Z3A.38 38 weeks gestation of pregnancy
CPT/HCPCS: 81000; 87088; G0463; 87077; 87186; 99213

== ENCOUNTER 2023-03-02 06:29 | Inpatient (IN) | payer MEDICAID ==
[2023-03-02] VITALS (36 sets, daily range): BP systolic 99–172; BP diastolic 58–97
[~2023-03-02] VITALS: Ht 167.7 cm; Wt 76.6 kg
[~2023-03-02 06:29] MED LIST changes: +CEPH500T PO
--- OUTSIDE RECORDS SUMMARY | 2023-03-02 06:37 | XMS REPORT ---
Author Author [facility] ter of [facility] ter of [facility] Address Unknown Phone Unavailable Care Team Providers Care Nursing Tech Name Role Phone FAITHMARVIN Unavailable PROBLEMS ALLERGIES No Known Allergies ENCOUNTERS from 1993 to 2022-11-25 SOCIAL HISTORY No smoking Hx information available REASON FOR REFERRAL No Information MEDICATIONS REASON FOR VISIT MEDICAL (GENERAL) HISTORY MENTAL STATUS ASSESSMENTS PLAN OF TREATMENT Insurance Providers
--- OUTSIDE RECORDS SUMMARY | 2023-03-02 06:37 | XMS REPORT ---
Author Author [facility] ter of [facility] ter of [facility] Address Unknown Phone Unavailable Care Team Providers Care Cadet Deck Name Role Phone HEIDI GUTHRIE Unavailable PROBLEMS ALLERGIES No Known Allergies ENCOUNTERS from 1993 to 2022-11-26 SOCIAL HISTORY No smoking Hx information available REASON FOR REFERRAL No Information MEDICATIONS REASON FOR VISIT MEDICAL (GENERAL) HISTORY MENTAL STATUS PLAN OF TREATMENT Insurance Providers
[2023-03-02] MEDS ORDERED: fentaNYL 2 mcg/ml BUPIVA 0.125 100 ML ONE (08:02)
[2023-03-02] MEDS ORDERED: D5 LR 1,000 ML IV SOLN 1,000 ML IV ONE (08:02)
[2023-03-02] MEDS ORDERED: LACTATED RINGERS 1,000 ML 500 ML IV PRN (08:15)
[2023-03-02] MEDS ORDERED: MINERAL OIL 30 ML UDC TOP PRN (08:15)
[2023-03-02] MEDS ORDERED: D5 LR 1,000 ML IV SOLN 1,000 ML IV SCH (08:15)
--- NOTE | 2023-03-02 08:22 | History & Physical-OB ---
OB - Chief Complaint & HPI Date/Time Date of Admission: Date of Admission: Mar 02, 2023 at 06:29 Date seen by a Provider: Mar 02, 2023 Time Seen by a Provider: 08:00 Chief Complaint/History OB-Reason for Admission/Chief: Induction of Labor Hx : 4 Hx Para: 2 Expected Date of Delivery: Mar 04, 2023 Gestational Age in Weeks: 39 Gestational Age in Days: 5 Indication for induction: maternal discomfort Admission Nurse Assessment Rev: Yes History of Labs O pos Antibody neg RNI RPR NR HBsAg NR HIV NR GC neg GBS neg Allergies and Home Medications Allergies Coded Allergies: No Known Drug Allergies (Unverified , 09/16/22) Patient Home Medication List Home Medication List Reviewed: Yes Cephalexin (Cephalexin) 500 Mg Tablet, 500 MG PO TID Prescribed by: Belén Sharp on 02/22/232103 Ondansetron (Ondansetron Odt) 4 Mg Tab.rapdis, 4 MG SL Q4H PRN for NAUSEA/VOMITING, (Reported) Entered as Reported by: BARB BUNN on 09/16/22 1352 Vit W-Ca,Fe,FA(<1 mg) ( Formula) 1 Each Tablet, 1 EACH PO DAILY, (Reported) Entered as Reported by: LIANNA LOPEZ on 10/28/17 1509 OB - History Hx of Present Care: Yes Ultrasounds: Normal mid trimester US Obstetrical Complications: Other (Cervical insufficency- cerclage 18wks-37) Medical Complications: None Delivery History Hx Blood Disorders: No Adverse Rxn to Tranfusion: No (n/a) Patient Past Medical History nc Social History/Family History 2nd Hand Smoke Exposure: No Immunizations First/Initial COVID19 Vaccine: unvaccinated Second COVID19 Vaccination: unvaccinated Third COVID19 Vaccination Date: unvaccinated Hepatitis A: Yes Hepatitis B: Yes OB - Admission Exam Physical Exam HEENT: NCAT Heart: Rhythm Normal Lungs: Clear Abdomen: Gravid Extremities: Normal Reflexes: Normal Cervical Dilatation: 4cm Effacement: 75% Station: -1 Membranes: Intact Heart Rate: 130's Decelerations: No Decelerations Short Term Variability: Present Foreign Collection Clerk Variability: Average (6-25) Contractions on Admission: 6-10 Minutes Apart Intensity: Mild Bergeron Scoring Tool (Modified) Dilation (cm): 3-4cm (2) Effacement (%): 51-79% (2) Descent/Station: -1,0 (2) Cervix Consistency: Soft (2) Cervix Position: Anterior (2) Add 1 point for: Each previous vaginal delivery (1) Bergeron Score: 12 Labs Laboratory Tests Test 03/02/23 08:11 03/02/23 08:12 Range/Units OB - Assessment/Plan/Diagnosis Assessment Assessment: induction of labor Admission Dx 27 yo @ 39 weeks GBS neg Admission Status: Inpatient Order (span 2 midnights) Reason for Inpatient Admission: IOL at 39 weeks Plan Plan: Induction Induction Method: AROM KWAKU STAFFORD DO Mar 02, 2023 08:22
[2023-03-02 08:32] LABS: BASOPHILS # (AUTO) 0.1 10^3/uL (0.0-0.1); BASOPHILS % (AUTO) 0 % (0-10); EOSINOPHILS # (AUTO) 0.2 10^3/uL (0.0-0.3); EOSINOPHILS % (AUTO) 2 % (0-10); HEMATOCRIT 35 % (35-52); HEMOGLOBIN 12.1 g/dL (11.5-16.0); LYMPHOCYTES # (AUTO) 3.1 10^3/uL (1.0-4.0); LYMPHOCYTES % (AUTO) 27 % (12-44); MEAN CORPUSCULAR HEMOGLOBIN 35 pg (25-34); MEAN CORPUSCULAR HGB CONC 35 g/dL (32-36); MEAN CORPUSCULAR VOLUME 99 fL (80-99); MEAN PLATELET VOLUME 10.1 fL (9.0-12.2); MONOCYTES # (AUTO) 0.9 10^3/uL (0.0-1.0); MONOCYTES % (AUTO) 8 % (0-12); NEUTROPHILS % (AUTO) 62 % (42-75); PLATELET COUNT 321 10^3/uL (130-400); WHITE BLOOD COUNT 11.3 10^3/uL (4.3-11.0)
[2023-03-02] MEDS ORDERED: fentaNYL INJECTION 100 MCG/2 ML VIAL ONE (09:34)
[2023-03-02] MEDS ORDERED: OXYTOCIN DRIP PRE-MIX 500 ML IV ONE (11:23)
--- NOTE | 2023-03-02 12:29 | OB Labor & Delivery Record ---
L&D History Date of Service Date of Service: Mar 02, 2023 History Expected Date of Delivery: Mar 04, 2023 Gestational Age in Weeks: 39 Hx : 4 Hx Para: 2 Complications Events: Routine care (cerclage removed at 37 weeks) Operative Indications (Cesarea: N/A-Vaginal Delivery Intrapartal Events: None L&D Stage1 Stage One Onset of Labor - Date: Mar 02, 2023 Monitors and Tracing Monitor Mode: External Monitor Accelerations: Uniform Penitentiary Variability: Average (6-10) Short Term Variability: Present Presentation: Vertex Vital Signs VS - Last 72 Hours, by Label 03/02/23 03/02/23 03/02/23 03/02/23 06:55 08:55 08:58 09:02 Temp 36.4 36.7 Pulse 87 79 90 81 Resp 16 20 20 20 B/P (MAP) 133/73 (93) 172/88 (116) 132/83 (99) Pulse Ox 99 100 100 100 O2 Delivery Room Air Room Air Room Air Room Air 03/02/23 09:05 Pulse 96 Resp 20 B/P (MAP) 153/97 (115) Pulse Ox 100 O2 Delivery Room Air Rupture of Membranes Spontaneous Ruture of Membrane: No Amniotic Membrane Rupture Time: 07:55 Amniotic Membrane Fluid Desc.: Clear Induction/Anesthesia Epidural Cath Placement - Time: 925 Progress/Notes Patient admitted for elective 39 week IOL. 4 cm at admission, AROM performed and with no other augmentation patient progressed to complete and + 2 station after epidural placed. L&D Stage2 Stage Two Stage II Date: Mar 02, 2023 Monitors and Tracing Monitor Mode: External Monitor Accelerations: Uniform Monitor Decelerations: Variable Penitentiary Variability: Average (6-10) Short Term Variability: Present Position: Right Occiput Anterior Presentation: Vertex Cord Descript/Complications Cord Vessel Description: 3 Vessels Delivery Type Infant Delivery Method: Spontaneous Vaginal Anterior Shoulder: Left Episiotomy/Perineal Laceration Laceraction(s)/Extensions: Yes Episiotomy Description: Perineal Extension/lac, 1st degree Degree (describe repair) 1st degree perineal laceration repaired using 3-0 rapide in usual fashion Condition of Delivery Notes Live male weight and apgars pending, infant on maternal abdomen after delivery doing well. Condition of Infant Condition of Infant: Living Exam: No Observed Abnormalities Resuscitation Resuscitation: N/A - Spontaneous Resp L&D Stage3 Stage Three Stage III Date: Mar 02, 2023 Pictocin Pitocin Administration Comment: 30 mu wide open after delivery of placenta Placenta Delivery Placenta Delivery: Spontaneous Delivery Summary Summary Estimated blood loss (mL): 300 Attending at delivery: Kwaku Stafford DO Condition of Delivery Examined: Cervix Examined, Uterus Explored Post Hemorrhage: No Condition of Mother stable Condition of (s) stable KWAKU STAFFORD DO Mar 02, 2023 12:29
[2023-03-02] MEDS ORDERED: DIBUCAINE 1% OINTMENT 28 GM TUBE TOP PRN (12:30)
[2023-03-02] MEDS ORDERED: WITCH HAZEL(TUCKS) 40 EA JAR TOP PRN (12:30)
[2023-03-02] MEDS ORDERED: MEASLES, MUMPS, RUBELLA VACCINE (MMR) SQ ONE (12:30)
[2023-03-02] MEDS ORDERED: OXYTOCIN DRIP PRE-MIX 500 ML IV SCH (12:30)
[2023-03-02] MEDS ORDERED: NALOXONE 0.4 MG/ML 1 ML VIAL IV PRN (12:30)
[2023-03-02] MEDS ORDERED: Tetanus/Diphtheria/Pertussis (Acell) ADULT Vaccine 0.5 ML IM ONE (12:30)
[2023-03-02] MEDS ORDERED: BENZOCAINE/MENTHOL (DERMOPLAST) 56 ML CAN TP PRN (12:30)
[2023-03-02] MEDS ORDERED: CATHETER FLUSH 10 ML SYR IV SCH ×2 (14:00)
[2023-03-02] MEDS: ACETAMINOPHEN 500 MG TABLET PO SCH ×2 (15:26→21:31)
[2023-03-02] MEDS: IBUPROFEN 600 MG TABLET PO SCH ×2 (15:27→21:30)
[2023-03-02] MEDS ORDERED: FLU QUADRIvalent (6 months+) 60 mcg/0.5 ml 2023-2024 (FLUARIX) IM ONE (19:00)
[2023-03-02] MEDS: DOCUSATE SODIUM 100 MG CAPSULE PO SCH (21:30)
[2023-03-03 04:42] VITALS: BP 112/67
[2023-03-03] MEDS: IBUPROFEN 600 MG TABLET PO SCH ×2 (04:42→11:45)
[2023-03-03] MEDS: ACETAMINOPHEN 500 MG TABLET PO SCH ×2 (04:43→11:45)
[2023-03-03 05:55] LABS: BASOPHILS % (AUTO) 0 % (0-10); EOSINOPHILS # (AUTO) 0.2 10^3/uL (0.0-0.3); EOSINOPHILS % (AUTO) 1 % (0-10); HEMATOCRIT 29 % (35-52); HEMOGLOBIN 10.3 g/dL (11.5-16.0); LYMPHOCYTES # (AUTO) 2.9 10^3/uL (1.0-4.0); LYMPHOCYTES % (AUTO) 21 % (12-44); MEAN CORPUSCULAR HEMOGLOBIN 35 pg (25-34); MEAN CORPUSCULAR HGB CONC 35 g/dL (32-36); MEAN CORPUSCULAR VOLUME 99 fL (80-99); MEAN PLATELET VOLUME 9.6 fL (9.0-12.2); MONOCYTES # (AUTO) 1.3 10^3/uL (0.0-1.0); MONOCYTES % (AUTO) 10 % (0-12); NEUTROPHILS # (AUTO) 9.3 10^3/uL (1.8-7.8); NEUTROPHILS % (AUTO) 67 % (42-75); PLATELET COUNT 258 10^3/uL (130-400); WHITE BLOOD COUNT 13.8 10^3/uL (4.3-11.0)
[2023-03-03] MEDS ORDERED: PRENATAL VITAMIN TABLET PO SCH (07:00)
--- NOTE | 2023-03-03 08:45 | Discharge Inst-Women's Service ---
Discharge Inst-Women's Serv Depart Medication/Instructions New, Converted or Re-Newed RX: Transmitted to Pharmacy Final Diagnosis PPD 1 NVD Problems Reviewed?: Yes Consults/Follow Up Additional Follow Up: Yes Orders/Referrals Dr. Stafford in 6 weeks Activity Activity: Activity as Tolerated Driving Instructions: No Driving for 1 Week NO SMOKING: NO SMOKING Nothing Inside Vagina: No Douching, No [place], No Tampons Diet Discharge Diet: No Restrictions Symptoms to Report to : Bleeding Excessive, Pain Increased, Fever Over 101 Degrees F, Vaginal Bleeding Increase, Questions/Concerns For Any Problems or Questions: Contact Your Physician KWAKU STAFFORD DO Mar 03, 2023 08:45
[2023-03-03] MEDS ORDERED: FERR325T24 PO (08:46)
[2023-03-03] MEDS ORDERED: IBUP-844 PO (08:46)
[2023-03-03] MEDS ORDERED: DIBU30OI TOP (08:46)
[2023-03-03] MEDS ORDERED: ACET-93 PO (08:46)
[2023-03-03] MEDS ORDERED: BENZ78AE5 TP (08:46)
[2023-03-03 09:00] VITALS: BP 118/74
[2023-03-03] MEDS ORDERED: FERROUS SULFATE 325 MG (IRON) TABLET PO SCH (09:00)
[2023-03-03] MEDS: DOCUSATE SODIUM 100 MG CAPSULE PO SCH (09:05)
[2023-03-03 13:45] VITALS: BP 114/70
[2023-03-03] MEDS ORDERED: FLU QUADRIvalent (6 months+) 60 mcg/0.5 ml 2023-2024 (FLUARIX) IM ONE (14:15)
--- NOTE | 2023-03-03 14:19 | Anesthesia-Regional Post-Op ---
Regional Patient Condition Mental Status: Alert, Oriented x3 Circulation: Same as Pre-Op Headache: Absent Sensation: Full Recovery Motor Block: Absent Post Op Complications Complications None Follow Up Care/Instructions Patient Instructions None needed. Anesthesia/Patient Condition Patient is doing well, no complaints, stable vital signs, no apparent adverse anesthesia problems. No complications reported per nursing. AD FOSS CRNA Mar 03, 2023 14:19
[2023-03-03 16:55] VITALS: BP 114/70
== END 2023-03-03 16:55 | disposition home or self-care (01) | DRG 807 ==
LOC: LDRP 06:29
PROVIDERS: ADMIT Obstetrics & Gynecology; ATTEND Obstetrics & Gynecology
PROC: 10E0XZZ Delivery of Products of Conception, External Approach (ICD-10-PCS; principal; 2023-03-02)
PROC: 10907ZC Drainage of Amniotic Fluid, Therapeutic from Products of Conception, Via Natural or Artificial Opening (ICD-10-PCS; 2023-03-02)
PROC: 0HQ9XZZ Repair Perineum Skin, External Approach (ICD-10-PCS; 2023-03-02)
DX: O70.0 First degree perineal laceration during delivery (principal); Z37.0 Single live birth; Z3A.39 39 weeks gestation of pregnancy
CPT/HCPCS: 36415; 85025; 86780; 86850; 86900; 86901; 90686